=== PATIENT | female | born 1990 | race Caucasian/White ===

== ENCOUNTER → 2019-07-09 | Outpatient (CLI) | payer OTHER ==
[~2019-07-09] MED LIST: BIRTH CONTROL; Cleocin HCl150 MG PO; Cleocin HCl300 MG PO; DOXY100 PO; FAMO20 PO; IBUP600 PO; IBUP800; Nuvaring Vagin1 EACH VG; OXYACE5T; PROM25 PO; Phenergan25 MG PR; Ultram50 MG PO; Verotin-Gr Cap1 EACH PO
== END | disposition home or self-care (01) ==
DX: Z34.83 Encounter for supervision of other normal pregnancy, third trimester (principal)

== ENCOUNTER 2019-08-01 05:05 | Inpatient (IN) | payer OTHER ==
[~2019-08-01] VITALS: Ht 162.6 cm; Wt 96.0 kg
[2019-08-01] MEDS ORDERED: CITA20 PO (05:51)
[2019-08-01] MEDS ORDERED: PRENATAL TABLE1 EAC2 PO (05:51)
[2019-08-01] MEDS ORDERED: MAGNESIUM OXID500 MG PO (05:51)
[2019-08-01 06:24] LABS: BASOPHILS ABSOLUTE AUTO 0.04 K/mm3 (0.00-0.23); BASOPHILS PERCENT AUTO 0 % (0-2); EOSINOPHILS ABSOLUTE AUTO 0.17 K/mm3 (0.00-0.68); EOSINOPHILS PERCENT AUTO 2 % (0-6); Hematocrit 32.2 % (33.0-51.0); Hemoglobin 9.9 g/dL (11.5-16.0); IMMATURE GRAN ABSOLUTE AUTO 0.03 K/mm3 (0.00-0.10); IMMATURE GRAN PERCENT AUTO 0 % (0-1); LYMPHOCYTES ABSOLUTE AUTO 2.49 K/mm3 (0.84-5.20); LYMPHOCYTES PERCENT AUTO 23 % (21-46); MONOCYTES ABSOLUTE AUTO 0.76 K/mm3 (0.16-1.47); MONOCYTES PERCENT AUTO 7 % (4-13); Mean Corpuscular HGB 24.9 pg (26.0-34.0); Mean Corpuscular HGB Conc 30.7 g/dL (31.5-36.5); Mean Corpuscular Volume 81 fL (80-100); Mean Platelet Volume 11.4 fL (9.1-12.4); NEUTROPHILS ABSOLUTE AUTO 7.52 K/mm3 (1.96-9.15); NEUTROPHILS PERCENT AUTO 68 % (41-73); Platelet Count 227 K/mm3 (150-400); RDW Coefficient Variation 15.3 % (11.7-14.2); RDW Standard Deviation 45.6 fL (35.1-46.3); Red Blood Cell Count 3.97 M/mm3 (3.80-5.20); White Blood Cell Count 11.01 K/mm3 (4.00-11.30)
[2019-08-02 05:39] LABS: Hematocrit 33.1 % (33.0-51.0); Mean Corpuscular HGB 24.9 pg (26.0-34.0); Mean Corpuscular HGB Conc 30.2 g/dL (31.5-36.5); Mean Corpuscular Volume 82 fL (80-100); Platelet Count 199 K/mm3 (150-400); RDW Coefficient Variation 15.6 % (11.7-14.2); RDW Standard Deviation 47.2 fL (35.1-46.3); Red Blood Cell Count 4.02 M/mm3 (3.80-5.20); White Blood Cell Count 10.99 K/mm3 (4.00-11.30)
[2019-08-02] MEDS ORDERED: IBUP800 PO (09:03)
--- NOTE | 2019-08-02 09:12 | NUR ---
GREG CALLED INTO [facility] AT 0910
--- NOTE | 2019-08-02 10:39 | NUR ---
DISCHARGE TEACHING TEACHING COMPLETED WITH BOTH PATIENT AND SIGNIFICANT OTHER, BOTH VERBALIZE UNDERSTANDING AND HAVE NO FURTHER QUESTIONS OR CONCERNS AT THIS TIME
== END 2019-08-02 11:24 | disposition home or self-care (01) | DRG 807 ==
LOC: OBS 05:05 → BC 05:09
PROVIDERS: ADMIT Obstetrics & Gynecology
PROC: 10E0XZZ Delivery of Products of Conception, External Approach (ICD-10-PCS; principal; 2019-08-01)
PROC: 00HU33Z Insertion of Infusion Device into Spinal Canal, Percutaneous Approach (ICD-10-PCS; 2019-08-01)
PROC: 3E0R3BZ Introduction of Anesthetic Agent into Spinal Canal, Percutaneous Approach (ICD-10-PCS; 2019-08-01)
DX: O69.81X0 Labor and delivery complicated by cord around neck, without compression, not applicable or unspecified (principal); Z37.0 Single live birth; Z3A.39 39 weeks gestation of pregnancy
CPT/HCPCS: 36415; 51702; 85025; 85027; 85460; 96372; J2001; J2590; J2791; J3010; J7120

== ENCOUNTER → 2020-03-04 | Outpatient (CLI) | payer OTHER ==
[~2020-03-04] MED LIST changes: +CITA20 PO; +IBUP800 PO; +MAGNESIUM OXID500 MG PO; +PRENATAL TABLE1 EAC2 PO
== END | disposition home or self-care (01) ==
LOC: LAB SHORT 19:52 → LAB 19:52
DX: S70.362A Insect bite (nonvenomous), left thigh, initial encounter (principal)
CPT/HCPCS: 87070; 87075; 87077; 87147; 87186; 87205

== ENCOUNTER → 2021-10-13 | Outpatient (CLI) | payer OTHER ==
[2021-10-15 14:10] LABS: HPV 16 Negative (Negative); HPV 18 Negative (Negative); HPV OTHER HR TYPES Negative (Negative)
== END | disposition home or self-care (01) ==
LOC: LAB SHORT 14:05 → LAB 14:05
PROVIDERS: Family Medicine
DX: Z01.419 Encounter for gynecological examination (general) (routine) without abnormal findings (principal)
CPT/HCPCS: 87624; G0123